=== PATIENT | female | born 1945 | race Caucasian/White ===

== ENCOUNTER 2023-12-16 08:40 | Observation (INO) ==
--- NOTE | 2023-12-06 12:35 | Anesthesiology Consultation ---
Date of Service December 06, 2023 Assessment & Plan (1) Encounter for pre-operative examination: Chart Review Chart Review: Acceptable Risk for Surgery and Patient NOT seen in Pre Admission Testing Infectious Disease screening: Per PAT nursing assessment on 12/06/23, No known infectious disease contacts in past 10 days or current infectious disease symptoms. No recent travel outside the country. History Surgery Operation Date: 12/16/23 10:00 Proposed Procedures p Robotic Assisted Hysterectomy and Bilateral Salpingo-Oophorectomy, Robotic Ass isted Sacral Colpopexy, Cystoscopy, - Abdirahman Enciso MD s Possible Sling - Abdirahman Enciso MD Height/Weight Height: 5 ft 5 in Weight: 66.678 kg Allergies Allergy/AdvReac Type Severity Reaction Status Date / Time No Known Allergies Allergy Verified 12/06/23 08:58 Medications Home Medications Medication Instructions Recorded Confirmed Last Taken ascorbic acid (vitamin C) 1,000 mg 1 g PO QAM 12/06/23 12/06/23 Unknown tablet (Vitamin C) atorvastatin 40 mg tablet 40 mg PO QAM 12/06/23 12/06/23 Unknown calcium 600 mg capsule 1,200 mg PO QAM 12/06/23 12/06/23 Unknown cholecalciferol (vitamin D3) 125 125 mcg PO QAM 12/06/23 12/06/23 Unknown mcg (5,000 unit) tablet (Vitamin D3) coQ10 (ubiquinol) 200 mg capsule 200 mg PO QAM 12/06/23 12/06/23 Unknown cyanocobalamin (vitamin B-12) 1,000 mcg PO QAM 12/06/23 12/06/23 Unknown 1,000 mcg tablet magnesium oxide 400 mg PO QAM 12/06/23 12/06/23 Unknown niacin 500 mg tablet 500 mg PO QAM 12/06/23 12/06/23 Unknown omega 1-vrl-owz-fish oil 1,000 mg 1 cap PO QAM 12/06/23 12/06/23 Unknown (120 mg-180 mg) capsule (Fish Oil) omeprazole 20 mg tablet,delayed 20 mg PO QAM 12/06/23 12/06/23 Unknown release potassium 99 mg tablet 99 mg PO QAM 12/06/23 12/06/23 Unknown vitamin B complex 1 tab PO QAM 12/06/23 12/06/23 Unknown vitamin E 400 unit tablet 400 unit PO QAM 12/06/23 12/06/23 Unknown zinc 50 mg capsule 50 mg PO QAM 12/06/23 12/06/23 Unknown Past Medical History Medical History (Updated 12/06/23 @ 15:07 by Lucy Rios PA-C) Arthritis Bladder prolapse, female, acquired GERD (gastroesophageal reflux disease) History of anemia Hyperlipidemia Prolapsed uterus pessary intact Stress incontinence Past Family History Family History Other No family history of adverse response to anesthesia Past Surgical History Surgical History H/O tubal ligation History of carpal tunnel release right/left History of cataract surgery right/left History of colonoscopy History of tooth extraction Social History Smoking Status: Never smoker Do You Dip or Chew Tobacco: No Hx Alcohol Use: No substance use type: does not use Lab Results Anesthesia Preop Results Results Anesthesia Widget: WBC 5.72 K/ul (4.8-10.8) 11/17/23 Hgb 12.5 g/dl (12.0-16.0) 11/17/23 Hct 38.7 % (37.0-47.0) 11/17/23 Plt 213 K/uL (130-400) 11/17/23 Na 140 mmol/L (136-145) 11/17/23 K 4.6 mmol/L (3.5-5.1) 11/17/23 Cl 105 mmol/L (98-107) 11/17/23 CO2 29 mmol/L (21-32) 11/17/23 BUN 22 mg/dl (6-23) 11/17/23 Creat 1.19 mg/dl (0.6-1.2) 11/17/23 Glucose Level 95 mg/dl (70-99(Fasting)) 11/17/23 Blood Type AB Positive 11/17/23 Antibody Screen NEGATIVE 11/17/23 Testing Electrocardiogram Date: 11/23/23 Findings: + NSR @ (61bpm) LAD. ST/TWA, consider anterior ischemia. Compared to 09/08/20, axis shifted left Stress Test Date: 09/29/20 Type: exercise Findings: + WNL Pt exercised to 8.4METS and 100%MPHR
--- NOTE | 2023-12-16 05:31 | History & Physical Report ---
Date of Service December 16, 2023 Assessment & Plan (1) Uterovaginal prolapse, incomplete: Plan: We reviewed uterovaginal prolapse and therapy options. For half-way therapy, she prefers surgery over pessary therapy. We reviewed trans vaginal vs robotic approaches. She prefers a robotic hysterectomy, bso, sacral colpopexy, cystoscopy, and possible sling. Risks of infection, bleeding, injury pain, mesh exposure, urinary incontinence were reviewed. All questions answered. Present on Admission?: Yes Admission and Anticipated Discharge Date Admission Date: 12/16/2023 Anticipated date of discharge: 12/17/23 History of Present Illness Chief Complaint: Uterovaginal prolapse Primary Care Provider: NO PCP Adelaida Gross is a 77 year old female P 3 with uterovaginal prolapse. Adelaida Gross complains of feeling a vaginal bulge. It reduces when resting, but the moment she stands up, she can feel the bulge protruding. She denies incontinence, but states that she uses the restroom often and only a small volume with come out. She has frequency every 2 hours, nocturia x 4. Urinary: Leakage: no Has leakage no Wears pads: no She has a persistent sense of incomplete bladder emptying. Prior/current treatment include: none Voiding detail: Daytime frequency: every 2 hours Urgency yes Nocturia:4 Hesitancy no Straining no Hematuria no Postvoid dribbling no Postvoid urgency no Manual reduction no Prolapse: She denies a palpable bulge. GI: Bowel habits: constipation She denies fecal incontinence. Prior/ current treatments include: none Allergies Allergy/AdvReac Type Severity Reaction Status Date / Time No Known Allergies Allergy Verified 12/16/23 09:27 Home Medications Medication Instructions Recorded Confirmed Type ascorbic acid (vitamin C) 1,000 mg 1 g PO QAM 12/06/23 12/16/23 History tablet (Vitamin C) atorvastatin 40 mg tablet 40 mg PO QAM 12/06/23 12/16/23 History calcium 600 mg capsule 1,200 mg PO QAM 12/06/23 12/16/23 History cholecalciferol (vitamin D3) 125 125 mcg PO QAM 12/06/23 12/16/23 History mcg (5,000 unit) tablet (Vitamin D3) coQ10 (ubiquinol) 200 mg capsule 200 mg PO QAM 12/06/23 12/16/23 History cyanocobalamin (vitamin B-12) 1,000 mcg PO QAM 12/06/23 12/16/23 History 1,000 mcg tablet magnesium oxide 400 mg PO QAM 12/06/23 12/16/23 History niacin 500 mg tablet 500 mg PO QAM 12/06/23 12/16/23 History omega 4-cil-cfm-fish oil 1,000 mg 1 cap PO QAM 12/06/23 12/16/23 History (120 mg-180 mg) capsule (Fish Oil) omeprazole 20 mg tablet,delayed 20 mg PO QAM 12/06/23 12/16/23 History release potassium 99 mg tablet 99 mg PO QAM 12/06/23 12/16/23 History vitamin B complex 1 tab PO QAM 12/06/23 12/16/23 History vitamin E 400 unit tablet 400 unit PO QAM 12/06/23 12/16/23 History zinc 50 mg capsule 50 mg PO QAM 12/06/23 12/16/23 History Past Med/Surg History Problem List Uterovaginal prolapse, incomplete Encounter for pre-operative examination Medical History Arthritis Bladder prolapse, female, acquired Prolapsed uterus pessary intact Stress incontinence GERD (gastroesophageal reflux disease) History of anemia Hyperlipidemia Surgical History H/O tubal ligation History of carpal tunnel release right/left History of colonoscopy History of tooth extraction History of cataract surgery right/left Family History Other No family history of adverse response to anesthesia Social History Smoking Status: Never smoker Second Hand Exposure: Yes (in the past); Do You Dip or Chew Tobacco: No; Hx Alcohol Use: No Preferred Language: Kuwaiti Downstream Biomanufacturing Technician Required: No Beliefs That Will Affect Care: None Current Living Situation: Spouse Feels Safe at Home: Yes Safety Concerns: Feels Safe At This Time Assistive Devices: Denture - Upper, Denture - Lower and Glasses Assistive Devices Comment: reading glasses Review of Systems Review of Systems: All systems reviewed & are unremarkable except as noted in HPI & below Physical Exam 2 Constitutional: WD/WN, vitals as above Eyes: PERRL, conjunctivae normal, anicteric sclerae ENMT: external ear and nose normal, oropharynx normal Neck: trachea midline, no thyromegaly Respiratory: normal respiratory effort Cardiovascular: Rate/Rhythm: regular rate Gastrointestinal (Abdomen): normal bowel sounds, soft, nontender, no hepatosplenomegaly Musculoskeletal: no cyanosis or clubbing, extremities motor strength 5/5 Skin: no rashes, warm and dry Psychiatric: A+Ox3, euthymic affect Code Status & VTE Plan VTE Prophylaxis Plan VTE Prophylaxis will be ordered: Yes
[2023-12-16] MEDS: metroNIDAZOLE 500 MG/100 ML BAG IV SCH (09:20)
[2023-12-16] MEDS: LR 15ML/HR IV SCH (09:20)
[2023-12-16] MEDS: SODIUM CHLORIDE 0.9% 1,000 ML IV SCH (09:36)
[2023-12-16] MEDS ORDERED: PROPOFOL IV EMULSION 10 MG/ML 20 ML VIAL IV ONE ×2 (10:13)
[2023-12-16] MEDS ORDERED: LIDOCAINE 2% 2 ML VIAL/AMP(20MG/ML) INFIL ONE (10:14)
[2023-12-16] MEDS ORDERED: KETOROLAC 30 MG/ML VIAL ONE (10:14)
[2023-12-16] MEDS ORDERED: SUGAMMADEX SODIUM 200 MG/2 ML VIAL IV ONE (10:14)
[2023-12-16] MEDS ORDERED: diphenhydrAMINE 50 MG/ML VIAL ONE (10:14)
[2023-12-16] MEDS ORDERED: fentaNYL citrate PF 100 MCG/2 ML VIAL ONE ×2 (10:14→12:02)
[2023-12-16] MEDS ORDERED: ePHEDrine sulfate 50 MG/5 ML SYR ONE (10:14)
[2023-12-16] MEDS ORDERED: PHENYLEPHRINE 100MCG/ML 10ML SYR IV ONE (10:14)
[2023-12-16] MEDS ORDERED: DEXAMETHASONE SOD INJ 4 MG/ML VIAL ONE (10:14)
[2023-12-16] MEDS ORDERED: ONDANSETRON INJ 2 MG/ML 2 ML VIAL ONE (10:14)
[2023-12-16] MEDS ORDERED: ROCURONIUM BROMIDE 10 MG/ML 5 ML VIAL IV ONE ×2 (10:14→11:20)
[2023-12-16] MEDS ORDERED: MIDAZOLAM HCL 1 MG/ML 2ML VIAL ONE (10:14)
[2023-12-16] MEDS ORDERED: ACETAMINOPHEN 1000 MG/100 ML IV IV ONE (10:16)
[2023-12-16] MEDS ORDERED: HYDROmorphone INJ 1 MG/ML SYRINGE IV PRN (10:32)
[2023-12-16] MEDS ORDERED: ATROPINE SULFATE 0.1 MG/ML 10ML SYR IV PRN (10:32)
[2023-12-16] MEDS ORDERED: PROMETHAZINE HCL 6.25 MG in SODIUM CHLORIDE 0.9% 50 ML IV PRN (10:32)
[2023-12-16] MEDS ORDERED: ePHEDrine sulfate 50 MG/ML AMP IV PRN (10:32)
[2023-12-16] MEDS ORDERED: ONDANSETRON INJ 2 MG/ML 2 ML VIAL IV PRN ×2 (10:32→13:52)
[2023-12-16] MEDS: ceFAZolin 2000MG 2,000 MG/15 ML SYR IV SCH (10:54)
[2023-12-16] MEDS ORDERED: METHYLENE BLUE 0.5% 10 ML VIAL ONE (12:59)
[2023-12-16] MEDS: BUPIVACAINE 0.5 % 5 MG/1 ML MPF 30ML VIAL ONE (13:12)
[2023-12-16] MEDS: PREMARIN VAG CRM 14 APPLN/30 GM TUBE ONE (13:29)
--- OUTSIDE RECORDS SUMMARY | 2023-12-16 13:44 | External Medical Summary | Summary of Care ---
Author Name Unknown Organization [facility] [address] [address] Phone [phone] Care Team Providers Care News Videographer Name Role Phone Ariana Howell DO Primary Care Provider Reason for Visit * Reason Onset Date Comments Surgery 12/12/2023 Encounter Details Date Type Department Care Team (Late st Contact Info) Description 12/12/2023 Telephone Urogynecology [facility] [address] [place] [id number] Abdirahman Enciso MD [address] [place] [phone] Surgery Allergies Active Allergy Reactions Criticality Noted Date Comments Escitalopram Oxalate 02/01/2011 Other reaction(s): Extreme dizziness/numbness documented as of this encounter (statuses as of 12/12/2023) Medications Medication Sig Dispensed Refills Start Date End Date Status Atorvastatin Calcium 40 MG Oral Tablet (Lipitor) 10/14/2023 Active documented as of this encounter (statuses as of 12/12/2023) Active Problems Problem Noted Date Diagnosed Date Chronic kidney disease, stage 3a 09/22/2020 Overview: Per CKD protocol Recurrent major depressive disorder, in partial remission 04/09/2020 Osteopenia of lumbar spine 06/29/2018 WARREN (generalized anxiety disorder) 11/01/2017 documented as of this encounter (statuses as of 12/12/2023) Resolved Problems Problem Noted Date Diagnosed Date Resolved Date Encounter for examination fo r normal comparison and control in clinical research program 06/28/2018 10/15/2019 Overview: DO NOT DELETE [facility] DETECT Study: Project # [id number], Dinkey Engine Firer/Fireman: Paras Sierra, PhD. SUMMARY: Goal: Establish test characteristics (sensitivity, specificity, PPV, NPV) of a circulating tumor DNA (ctDNA)-based test for cancer. Hypothesis: Circulating tumor DNA (ctDNA) and elevated protein biomarkers (together, the marker panel) can be detected in asymptomatic individuals with early cancer. Specific Aim 1: Determine the prevalence of a positive marker panel test in a prospective clinical cohort of 10,000 asymptomatic women ages 65 to 75 years. Specific Aim 2: Determine the sensitivity, specificity, positive predictive value (PPV) and negative predictive value (NPV) of a marker panel test to identify histologically proven cancers that develop within 5-years of the marker panel evaluation. CONTACTS: During normal business hours, contact study staff at ; after hours Dinkey Engine Firer/Fireman via the [facility] butadiene compressor operator . Please contact study team before resolving/deleting from patients problem list. Study phone number: [phone]. Diagnosis changed due to Research Module. Go to Snapshot for study details. Encounter for examination fo r normal comparison and control in clinical research program 06/28/2018 11/12/2021 Overview: DO NOT DELETE - [facility] DETECT Study: Project # [id number], Dinkey Engine Firer/Fireman: Grayson Abreu, MS, MPH. SUMMARY: Goal: Establish test characteristics (sensitivity, specificity, PPV, NPV) of a circulating tumor DNA (ctDNA)-based test for cancer. - Hypothesis: Circulating tumor DNA (ctDNA) and elevated protein biomarkers (together, the marker panel) can be detected in asymptomatic individuals with early cancer. - Specific Aim 1: Determine the prevalence of a positive marker panel test in a prospective clinical cohort of 10,000 asymptomatic women ages 65 to 75 years. - Specific Aim 2: Determine the sensitivity, specificity, positive predictive value (PPV) and negative predictive value (NPV) of a marker panel test to identify histologically proven cancers that develop within 5-years of the marker panel evaluation. - CONTACTS: During normal business hours, contact study staff at ; after hours Dinkey Engine Firer/Fireman via the [facility] butadiene compressor operator . - Please contact study team before resolving/deleting from patients problem list. Study phone number: [phone]. Diagnosis changed due to Research Module. Go to Snapshot for study details. documented as of this encounter (statuses as of 12/12/2023) Immunizations Name Administration Dates Next Due COVID-19 mRNA, LNP-s, No Pre serve, 2-Dose Series (Pfizer) 02/17/2021,05/28/2020,05/07/2020 Pneumococcal Conjugate Vacc, 13 Valent (Prevnar) 11/01/2017 Pneumococcal Polysaccharide PPV23 (Pneumovax) 01/18/2012 Season Influenza, Quad, PF, Adjuvanted, 65+ Yrs, IM (FLUAD) 12/25/2020 Seasonal Influenza, High Dos e, Trivalent, PF, IM (Fluzone HD) 01/12/2019 Seasonal Influenza, PF, 6 M & above, IM , (FluLaval or Fluzone) 01/02/2020,01/11/2018 Seasonal Influenza, Recombin ant, RIV4, PF, (Flublock) 12/19/2019 TD - Tetanus/Diptheria (ADULT) 03/13/2012 documented as of this encounter Social History Tobacco Use Types Packs/Day Years Used Date Smoking Tobacco: Never Smokeless Tobacco: Never Alcohol Use Standard Drinks/Week Comments No 0 (1 standard drink = 0.6 oz pur e alcohol) PHQ-2 Answer Date Recorded PHQ Adult Total Score 2 04/09/2020 Hunger Vital Sign Answer Date Recorded Within the past 12 months, y ou worried that your food would run out before you got the money to buy more. Never true 03/25/19 21 Within the past 12 months, t he food you bought just didn't last and you didn't have money to get more. Never true 03/25/2020 Utilities Answer Date Recorded Do you have trouble paying y our heating, water, or electric bill? (Adult - for ages 18 years and over) Not on file 08/30/2023 Is your family able to pay t he heat, water, or electric bill? (Household - for ages 0-17 years) Not on file 08/30/2023 Does your family have access to good internet? (Household - for ages 0-17 years) Not on file 08/30/2023 Social Connections Answer Date Recorded How often do you feel lonely or isolated from those around you? (Adult - for ages 18 years and over) Not on file 08/30/2023 Sex and Gender Information Value Date Recorded Sex Assigned at Not on file Gender Identity Not on file Sexual Orientation Not on file Job Start Date Occupation Industry Not on file Not on file Not on file documented as of this encounter Miscellaneous Notes * Telephone Encounter - Mone Robbins LPN - 12/12/2023 1:13 PM EDT Provider spoke with patient - will proceed with surgery. Encounter closed. * Telephone Encounter - Felecia Kilpatrick OSA - 12/12/2023 8:41 AM EDT Pt called this morning. She has questions regarding her surgery on Friday 12/[address] Enciso. Pt is having surgery at [facility] for a robotic assisted hysterectomy and bilateral salpingo-oophorectomy, robotic assisted sacral colpopexy, possible sling and cystoscopy. She has been looking up information on internet and is not sure if she wants to go forward. documented in this encounter Plan of Treatment Upcoming Encounters Date Type Department Care Team (Late st Contact Info) Description 12/28/2023 8:00 AM EDT Telemedicine [facility] [address] [place] [address] Abdirahman Enciso MD [address] [place] [phone] 02/01/2024 1:30 PM EST Office Visit [facility]gynecology [facility] [address] [place] [address] Abdirahman Enciso MD [address] [place] [address] Health Maintenance Due Date Last Done Comments Albumin/Creatinine Ratio 12/28/1963 Zoster Vaccines (1 of 2) 12/28/1995 DTap/Tdap Vaccines (1 - Tdap) 03/14/2012 03/13/2012 Depression Monitoring 04/09/2021 04/09/2020 CKD PHOS USE SMARTSET 32564 09/10/2021 09/10/2020 COVID-19 Vaccine ( - season) 2023 02/17/2021, 05/28/2020, 05/07/2020 Influenza Vaccine (FLU shot) (#1) 2023 12/25/2020, 01/02/2020, 12/19/2019, Additional history exists GFR 05/16/2024 11/17/2023, 08/14, 03/25/2020 CKD HGB USE SMARTSET 12294 11/16/202411/16, 09/10/2020, 03/25/2020 DXA Scan 06/29/2025 06/29/2018, 07/01/2016 Pneumococcal Vaccine: 65+ Years Completed 11/01/2017, 01/18/2012 RETIRED - COLONOSCOPY-EVERY 5 YRS AGES 18-100 Discontinued 05/08/2020, 07/19/2011 HPV (Gardasil) Vaccine Aged Out No lo nger eligible based on patient's age to complete this topic Hepatitis B Vaccine Aged Out No longe r eligible based on patient's age to complete this topic MENINGOCOCCAL (MENACTRA/MENVEO) Aged Out No longer eligible based on patient's age to complete this topic documented as of this encounter Medical Devices Not on filedocumented as of this encounter Care Teams News Videographer Relationship Specialty Start Date End Date Ariana Howell DO [address] [place] [id number] PCP - General Family Medicine 05/22/21 documented as of this encounter
--- OUTSIDE RECORDS SUMMARY | 2023-12-16 13:45 | External Medical Summary | Summary of Care ---
Author Name Unknown Organization [facility] Address [address] [address] Phone [phone] Care Team Providers Care Piece Dyeing Machine Tender Name Role Phone Ariana Howell DO Primary Care Provider Encounter Details Date Type Department Care Team (Late st Contact Info) Description 11/18/2023 Orders Only Urogynecology [facility] [address] [place] [address] Abdirahman Enciso MD [address] [place] [id number] Allergies Active Allergy Reactions Criticality Noted Date Comments Escitalopram Oxalate 02/01/2011 Other reaction(s): Extreme dizziness/numbness documented as of this encounter (statuses as of 11/18/2023) Medications Medication Sig Dispensed Refills Start Date End Date Status Atorvastatin Calcium 40 MG Oral Tablet (Lipitor) 10/14/2023 Active documented as of this encounter (statuses as of 11/18/2023) Active Problems Problem Noted Date Diagnosed Date Chronic kidney disease, stage 3a 09/22/2020 Overview: Per CKD protocol Recurrent major depressive disorder, in partial remission 04/09/2020 Osteopenia of lumbar spine 06/29/2018 WARREN (generalized anxiety disorder) 11/01/2017 documented as of this encounter (statuses as of 11/18/2023) Resolved Problems Problem Noted Date Diagnosed Date Resolved Date Encounter for examination fo r normal comparison and control in clinical research program 06/28/2018 10/15/2019 Overview: DO NOT DELETE [facility] [place] DETECT Study: Project # [id number], Sheepskin Pickler: Paras Sierra, PhD. SUMMARY: Goal: Establish test [...] contact study staff at ; after hours Sheepskin Pickler via the [facility] jet piercer operator . Please contact study team before resolving/deleting from patients problem list. Study phone number: [phone]. Diagnosis changed due to Research Module. Go to Snapshot for study details. Encounter for examination fo r normal comparison and control in clinical research program 06/28/2018 11/12/2021 Overview: DO NOT DELETE - [facility] [place] DETECT Study: Project # [id number], Sheepskin Pickler: Grayson Abreu, MS, MPH. SUMMARY: Goal: Establish [...] contact study staff at ; after hours Sheepskin Pickler via the [facility] jet piercer operator . - Please contact study team before resolving/deleting from patients problem list. Study phone number: [phone]. Diagnosis changed due to Research Module. Go to Snapshot for study details. documented as of this encounter (statuses as of 11/18/2023) Immunizations Name Administration Dates Next Due COVID-19 [...] on file documented as of this encounter Plan of Treatment Upcoming Encounters Date Type Department Care Team (Late st Contact Info) Description 11/23/2023 10:15 AM EDT Cardiac Studies Cardiac Studies, [facility] [address] [place] [phone] 12/28/2023 8:00 AM EDT Telemedicine Urogynecology [facility] [address] [place] [address] Abdirahman Enciso MD [address] [place] [id number] 02/01/2024 1:30 PM EST Office Visit Urogynecology [facility] [address] [place] [address] Abdirahman Enciso MD [address] [place] [address] Health Maintenance Due Date Last Done Comments Albumin/Creatinine Ratio 12/28/1963 Zoster Vaccines (1 of 2) 12/28/1995 DTap/Tdap Vaccines (1 - Tdap) 03/14/2012 03/13/2012 GFR 03/12/2021 11/17/2023, 08/14, 03/25/2020 Depression Monitoring 04/09/2021 04/09/2020 CKD HGB USE SMARTSET 33866 09/10/202111/16, 09/10/2020, 03/25/2020 CKD PHOS USE SMARTSET 97018 09/10/2021 09/10/2020 COVID-19 Vaccine ( season) 2023 02/17/2021, 05/28/2020, 05/07/2020 Influenza Vaccine (FLU shot) (#1) 2023 12/25/2020, 01/02/2020, 12/19/2019, Additional history exists DXA Scan 06/29/2025 06/29/2018, 07/01/2016 Pneumococcal Vaccine: [...] Not on filedocumented as of this encounter Procedures Procedure Name Priority Date/Time Associated Diagnosis Comments CHEMISTRY-OUTSIDE Routine 11/17/2023 documented in this encounter Results * CHEMISTRY-OUTSIDE (11/17/2023) Not all results display below - see scan for full detail OUTSIDE LAB (SEE SCANNED REPORT) Comment:SEE SCAN: BMP, CBCD CREATININE-OUTSID E LAB 1.19 0.6 - 1.2 MG/DL OUTSIDE LAB (SEE SCANNED REPORT) EGFR-OUTSIDE LAB 44.0 ML/MIN/1.7 3M2 OUTSIDE LAB (SEE SCANNED REPORT) POTASSIUM-OUTSIDE LAB 4.5 3.5 - 5.1 MMOL/L OUTSIDE LAB (SEE SCANNED REPORT) GLUCOSE-OUTSIDE LAB 95 70 - 99 MG/DL OUTSIDE LAB (SEE SCANNED REPORT) HOURS FASTING OUTSID E LAB (SEE SCANNED REPORT) TRIGLYCERIDES-OUT SIDE LAB OUTSIDE LAB (SEE SCANNED REPORT) CHOLESTEROL-OUTSI DE LAB OUTSIDE LAB (SEE SCANNED REPORT) HDL-OUTSIDE LAB OUTS GRECIA LAB (SEE SCANNED REPORT) CHOL/HDL RATIO-OUTSIDE LAB OUTSIDE LA B (SEE SCANNED REPORT) LDL (CALCULATED)-OUTS GRECIA LAB OUTSIDE LAB (SEE SCANNED REPORT) LDL (DIRECT MEASURE)-OUTSIDE LAB OUTSIDE LAB (SEE SCANNED REPORT) HEMOGLOBIN, [id number] LAB OUTSIDE LAB (SEE SCANNED REPORT) PHOSPHORUS-OUTSID E LAB OUTSIDE LAB (SEE SCANNED REPORT) PTH-OUTSIDE LAB OUTS GRECIA LAB (SEE SCANNED REPORT) MICROALBUMIN RATIO-OUTSIDE LAB OUTSIDE LA B (SEE SCANNED REPORT) PROTEIN, UA-OUTSIDE LAB OUTSIDE LAB (SEE SCANNED REPORT) HGB 12.5 12.0 - 16.0 G/DL OUTSIDE LAB (SEE SCANNED REPORT) 11/17/2023 Abdirahman Enciso MD LABORATORY OUTSIDE LAB (SEE SCANNED REPORT) documented in this encounter Care Teams Piece Dyeing Machine Tender Relationship Specialty Start Date End Date Ariana Howell DO [address] [place] [id number] PCP - General Family Medicine 05/22/21 documented as of this encounter
[2023-12-16] MEDS ORDERED: oxyCODONE/ACETAMINOPHEN 5mg/325mg TAB PO PRN (13:52)
--- NOTE | 2023-12-16 13:53 | Operative Report ---
Post Operative Report Pre & Post Diagnosis Operation Date: 12/16/23 10:30 Pre-Op Diagnosis: Uterovaginal Prolapse, Incomplete Post-Op Diagnosis: Uterovaginal Prolapse, Incomplete I identified the patient and participated in the time-out.: Yes Procedure Operation Date: 12/16/23 10:30 Actual Procedures p Robotic Assisted Hysterectomy and Bilateral Salpingo-Oophorectomy, Robotic Assisted Sacral Colpopexy, Cystoscopy(Not Applicable) - Abdirahman Enciso MD Surgeon Abdirahman Enciso MD Freight Checker Radha Godinez PA-C Estimated Blood Loss 25 Findings Consistent with Post-Op Diagnosis Fluids crystalloid Specimens cervix, uterus, tubes and ovaries Drains Jordan Catheter Anesthesia Type General Complications none Disposition Accompanied Patient To Recovery: Yes Disposition: Recovery Room Indications symptomatic uterovaginal prolapse Description of Procedure The patient was identified and the procedure verified. Anesthesia was provided by anesthesia service. The patient was placed in dorsal lithotomy position, prepped and draped in the usual manner. She was identified, and her procedure was also identified. A Jordan catheter was placed into the bladder and the bladder was drained. The anterior lip of the cervix was grasped with a single tooth tenaculum. The uterus was sounded to 6 cm and the cervix was serially dilated. The [employer] uterine manipulator was applied. An umbilical skin incision was made with a scalpel and an 8mm trocar with optiview was advanced through the incision, fascia, peritoneum and into the abdominal cavity under direct visualization. The abdomen was insufflated with CO2 gas. Two additional 8 mm trocars were placed on the right and another two 8 mm trocars were placed on the left under direct visualization. The patient was placed in moderate Trendelenburg position. The robot was docked. The uterus, ovaries, and ureters were well visualized. The tubes were grasped and dissected away from the ovaries and broad ligament. The utero-ovarian ligaments were vessel sealed and transected bilaterally. The round ligaments were vessel sealed and transected bilaterally. The bladder flap was developed. The uterine vessels were dissected, vessel sealed and transected for excellent hemostasis. The uterine manipulator cervical cup was well visualized and a colpotomy incision was made. The cervix, uterus, and tubes were delivered out the vagina and sent to pathology. The vaginal cuff was closed with 0 V-Lock suture in a running fashion in two layers. Excellent hemostasis was confirmed. The bladder was sharply dissected off the anterior vaginal wall for 8 cm distally. A 0.5 cm cystotomy was identified in the midline and was closed in 2 layers with 2-0 V-lock suture in a running fashion. The rectum and posterior peritoneum was dissected off the posterior vaginal wall for 8 cm distally. The Y mesh was then secured to the anterior and posterior vaginal reinoso 2-0 V-lock suture in a running fashion. The peritoneum over the sacrum was then incised and extended along the right ashley-colic gutter. The tail end of the Y mesh was secured to the anterior longitudinal ligament with 2 interrupted sutures of CV-0 [place]-jaren. The peritoneum was closed over the Y mesh with 2-0 V-lock in a running fashion. Excellent hemostasis was confirmed. Cystoscopy was performed with 17 Romanian 70 deg cystoscope with 300 ml of irrigation fluid in a systematic fashion. Excellent closure of the cystotomy in the mid dome was confirmed and no extravasation was observed robotically. Excellent efflux of ureters was demonstrated bilaterally. No other lesions were noted. The cystoscope was removed and the Jordan catheter was placed into the bladder. The robot was undocked, the CO2 gas was allowed to recede. The trocars were removed. The skin incisions were closed with 4-0 Monocryl in a subcuticular fashion and dressed with surgical glue. Vaginally, the cuff was closed and intact. Excellent support of the anterior, apical, and vaginal reinoso was confirmed. Excellent hemostasis was confirmed. All sponge, lap, and needle counts were correct. The patient tolerated the procedure well and left the Operating Room in good condition. I attest to the content of the Intraoperative Record and any orders documented therein. Any exceptions are noted below. No qualified resident was available. Radha Godinez PA-C was required for surgical assistance, patient positioning, draping, robot docking, instrument exchanges, retraction, irrigation and suction, and wound closure.
[2023-12-16] MEDS: fentaNYL citrate PF 100 MCG/2 ML VIAL IV PRN (14:35)
--- NOTE | 2023-12-16 14:52 | Anesthesiology Progress Note ---
Date of Service December 16, 2023 Anesthesia Post Procedure Vital Signs Vital Signs: Temp Pulse Pulse Resp BP Pulse Ox O2 Del Method 12/16/23 14:35 54 L 14 157/79 H 98 Nasal Cannula 12/16/23 14:25 56 L 12 163/76 H 100 Oxymask 12/16/23 14:15 57 L 16 161/85 H 100 Oxymask 12/16/23 14:05 54 L 16 155/75 H 100 Oxymask 12/16/23 13:55 36.0 C L 55 L 18 165/71 H 100 Oxymask 12/16/23 09:16 36.8 C 62 20 169/82 H 97 Room Air O2 Flow Rate 12/16/23 14:35 2 12/16/23 14:25 4 12/16/23 14:15 4 12/16/23 14:05 4 12/16/23 13:55 6 12/16/23 09:16 Pain Intensity Abdomen: Pain Intensity: 5 Transfer of Care Handoff Completed per policy Notes Mental Status: alert / awake / arousable and participated in evaluation Patient Amnestic to Procedure: Yes Nausea / Vomiting: adequately controlled Pain: adequately controlled Airway Patency, RR, SpO2: stable & adequate BP & HR: stable & adequate Hydration State: stable & adequate Anesthetic Complications: see Notes below and Pt Satisfied with anesthetic care Notes: Case largely uneventful however when drapes were removed and prior to extubating patient, I noted bleed coming from her right ear canal. Area examined and it appeared to be originating from inside ear canal and not an exterior wound with blood pooling in the ear. Blood was cleaned from her ear and patient extubated without difficulty. In recovery, no significant bleeding noted and patient was awake and conversant and denying significant pain. I used an otoscope and noted some blood in ear canal and possibly small defect in tympanic membrane but difficult to determine given some clotted blood in canal. I did a literature review and noted several case reports of perioperative otorrhagia in association with non-otolaryngologic surgery. The typical cause was physiologic derangements associated with Trendelenburg position (this patient was in STEEP trendelenburg position for several hours). Risk factors are advanced age, female gender, perioperative hypertension and steep Trendelenburg position. I spoke with ENT who recommended five days of ofloxacin ear drops (10 drops in right ear for five days) and her office will contact the patient early next week so she can be seen in her office. ENT physician stated if her eardrum ruptured the vast majority heal on their own but if not, she will be plugged into our system for further definitive management/treatment. I then spoke to attending [employer] surgeon Dr. Enciso and made him aware of the situation. I had asked him to write for the ofloxacin ear drops as an outpatient for when the patient is discharged tomorrow. Finally, I called the patient's to let him know about the situation and to make him aware that the ENT office will be reaching out to her. All questions answered.
[2023-12-16] MEDS: OFLOXACIN 0.3% 75 DROPS/5 ML BTL OTR SCH (14:55)
[2023-12-16] MEDS: oxyCODONE/ACETAMINOPHEN 5mg/325mg TAB PO PRN (16:00)
[2023-12-17 03:44] VITALS: BP 124/70
[2023-12-17 06:19] LABS: Basophils # (auto) 0.01 K/uL (0.00-0.20); Basophils % (auto) 0.1 %; Hematocrit (blood only) 34.5 % (37.0-47.0); Hemoglobin 11.8 g/dl (12.0-16.0); Immature Granulocytes # (auto) 0.07 K/uL (0.01-0.20); Immature Granulocytes % (auto) 0.5 %; Lymphocytes # (auto) 0.71 K/uL (1.20-3.40); Lymphocytes % (auto) 4.9 %; Mean Corpuscular Hemoglobin 27.1 pg (25.0-34.0); Mean Corpuscular Hgb Conc 34.2 g/dL (32.0-36.0); Mean Corpuscular Volume 79.3 fL (80.0-100.0); Mean Platelet Volume 8.8 fL (9.4-12.4); Monocytes # (auto) 0.72 K/uL (0.11-0.59); Neutrophils # (auto) 13.01 K/uL (1.40-6.50); Neutrophils % (auto) 89.5 %; Platelet Count 207 K/uL (130-400); RDW Standard Deviation 37.1 fL (36.4-46.3); Red Blood Count 4.35 M/uL (4.20-5.40); White Blood Count 14.52 K/ul (4.8-10.8)
[2023-12-17 06:30] LABS: BUN Creatinine Ratio 18.2 (10-20); Calcium 9.1 mg/dl (8.6-10.3); Potassium 4.8 mmol/L (3.5-5.1)
[2023-12-17 08:02] VITALS: PULSE 79; RESP 14; TEMP 98.2; O2SAT 96
--- NOTE | 2023-12-17 08:56 | Progress Note ---
Date of Service December 17, 2023 Assessment & Plan (1) Uterovaginal prolapse, incomplete: Plan: POD#1 s/p robotic hysterectomy, bso, sacral colpopexy. Cystotomy repair. Cystoscopy Patient is feeling well. I reviewed the cystostomy repair and blood from her right ear. Anesthesia consulted ENT by phone, ENT recommended follow up in this week. Continue ear drops. Will keep Jordan catheter for 10 days, will check cystogram prior to removal. Jordan catheter management reviewed. All questions answered. Present on Admission?: Yes Admission and Anticipated Discharge Date Admission Date: December 16, 2023 Anticipated date of discharge: 12/17/23 Subjective Feeling well,pain well controlled, Denies SOB, CP, Nausea Denies loss of hearing from left or right ear Review of Systems Review of Systems: All systems reviewed & are unremarkable except as noted in HPI & below Ear, Nose, Mouth, Throat: Bloody drainage has stopped from right ear Physical Exam Constitutional: WD/WN, vitals as above ENMT: Sponge in place in right ear. No bleeding Neck: trachea midline, no thyromegaly Respiratory: normal respiratory effort Cardiovascular: Rate/Rhythm: regular rate Gastrointestinal (Abdomen): normal bowel sounds, soft, nontender, no hepatosplenomegaly Musculoskeletal: no cyanosis or clubbing, extremities motor strength 5/5 neg edema, Skin: no rashes, warm and dry Psychiatric: A+Ox3, euthymic affect Genitourinary: vaginal packing removed, dry Results & Data Vital Signs (Past 12 Hours) Vital Signs Temp Pulse Resp BP Pulse Ox O2 Del Method 12/17/23 07:59 36.8 C 79 14 124/70 96 Room Air 12/17/23 03:15 36.6 C 76 18 124/70 95 Room Air 12/17/23 00:30 36.5 C 72 18 122/63 97 Room Air Laboratory Results CBC and BMP reviewed. Creatinine is stable compared to pre-op. A month ago Creatinine was 1.19, 3 years ago Creatinine was 1.1 and 1.4. Today creatinine is 1.21
[2023-12-17] MEDS ORDERED: NON-FORMULARY MEDICATION (Coq10 (Ubiquinol) 200 mg Capsule) PO SCH (09:00)
[2023-12-17] MEDS ORDERED: NON-FORMULARY MEDICATION (Potassium 99 mg Tablet) PO SCH (09:00)
[2023-12-17] MEDS: OMEGA-3 (PURIFIED FISH OIL) 1 GM CAP PO SCH (09:11)
[2023-12-17] MEDS: ATORVASTATIN 40 MG TAB PO SCH (09:12)
[2023-12-17] MEDS: MAGNESIUM OXIDE 400 MG TAB PO SCH (09:12)
[2023-12-17] MEDS: CYANOCOBALAMIN (B-12) 500 MCG TABLET PO SCH (09:13)
[2023-12-17] MEDS: PANTOprazole 40 MG TAB PO SCH (09:13)
--- NOTE | 2023-12-17 09:14 | Discharge Summary ---
Date of Service December 17, 2023 Admission HPI Per Admitting Provider Adelaida Gross is a 77 year old female P 3 with uterovaginal prolapse. Adelaida Gross complains of feeling a vaginal bulge. It reduces when resting, but the moment she stands up, she can feel the bulge protruding. She denies incontinence, but states that she uses the restroom often and only a small volume with come out. She has frequency every 2 hours, nocturia x 4. Urinary: Leakage: no Has leakage no Wears pads: no She has a persistent sense of incomplete bladder emptying. Prior/current treatment include: none Voiding detail: Daytime frequency: every 2 hours Urgency yes Nocturia:4 Hesitancy no Straining no Hematuria no Postvoid dribbling no Postvoid urgency no Manual reduction no Prolapse: She denies a palpable bulge. GI: Bowel habits: constipation She denies fecal incontinence. Prior/ current treatments include: none Admission Exam (Per Admitting) Constitutional WD/WN, vitals as above Eyes PERRL, conjunctivae normal, anicteric sclerae ENMT external ear and nose normal, oropharynx normal Neck trachea midline, no thyromegaly Respiratory normal respiratory effort Cardiovascular Rate/Rhythm: regular rate Gastrointestinal (Abdomen) normal bowel sounds, soft, nontender, no hepatosplenomegaly Musculoskeletal no cyanosis or clubbing, extremities motor strength 5/5 Skin no rashes, warm and dry Psychiatric A+Ox3, euthymic affect Discharge Data Procedures Performed Operation Date: 12/16/23 10:30 Actual Procedures p Robotic Assisted Hysterectomy and Bilateral Salpingo-Oophorectomy, Robotic Assisted Sacral Colpopexy, (Not Applicable) - Abdirahman Enciso MD s Cystoscopy(Not Applicable) - Abdirahman Enciso MD Hospital Course (1) Uterovaginal prolapse, incomplete: POD#1 s/p robotic hysterectomy, bso, sacral colpopexy. Cystotomy repair. Cystoscopy Patient is feeling well. I reviewed the cystostomy repair and blood from her right ear. Anesthesia consulted ENT by phone, ENT recommended follow up in this week. Continue ear drops. Will keep Jordan catheter for 10 days, will check cystogram prior to removal. Jordan catheter management reviewed. All questions answered.
[2023-12-17] MEDS: ACETAMINOPHEN 325 MG TAB PO PRN (11:13)
== END 2023-12-17 11:59 | disposition home or self-care (01) ==
LOC: ASU 08:40 → 4E1 08:40